=== PATIENT | female | born 1950 | race Caucasian/White ===

== ENCOUNTER → 2018-03-15 | Outpatient (CLI) | payer MEDICARE, BC ==
[~2018-03-15] MED LIST: ALDACTONE25 MG PO; ALLEGRA ALLERG180 MG PO; ALLEGRA ALLERGY60 MG PO; ASPIR 8181 MG PO; B-12250 MCG PO; CARVEDILOL3.125 MG PO; CARVEDILOL6.25 MG PO; COZAAR 50 MG TA50 M2 PO; COZAAR100 MG PO; DOXYCYCLINE HYC20 MG PO; EVISTA PO; FOLIC ACID 40400 MC1 PO; GLUCOSAMINE &1 EAC1 PO; HYDRALAZINE 2525 MG PO; LEVAQUIN 500 M500 M2 PO; LEVOTHYROXIN0.112 M1 PO; MAGNESIUM250 M1 PO; MAGNESIUM500 MG PO; METOPROLOL TART25 MG PO; MOBIC15 MG PO; NITROGLYCERIN0.4 MG SUBLING; OSTEO BI-FLEX1 EAC2 PO; PROAIR HFA8.5 GM NASAL; PROAIR HFA8.5 GM PO; PROTONIX40 M1 PO; RANITIDINE 150150 M1 PO; SAXENDA3 MG/0.5 M SUBQ; SYNTHROID100 MCG PO; VITAMIN B-121000 MCG PO; VITAMIN B-12500 MCG PO; VITAMIN D1000 UNI1 PO; VITAMIN D31 ML PO; VITAMIN D31000 UNI2 PO; VITAMINC500 PO
--- NOTE | 2018-03-15 11:18 | 2DMMODE ---
[place] [address] 2 D/M-MODE ECHOCARDIOGRAM Name: CHANCE LEVIN Room: [facility]#: [id number] Admission: 03/15/18 Attend Phys: Jordyn Sanchez Discharge: Date of : 48 Date of Service: 03/15/18 1118 Report #: [id number] THIS REPORT FOR: //name// APPROVED REPORT Study performed: 03/15/2018 09:21:19 EXAM: Comprehensive 2D, Doppler, and color-flow Echocardiogram Patient Location: Out-Patient Status: routine BSA: 2.07 HR: 65 bpm BP: 130/70 mmHg Other Information Study Quality: Good Indications Cardiomyopathy 2D Dimensions LVEF(%): 58.64 (>50%) IVSd: 12.40 (7-11mm) LVOT Diam: 20.94 (18-24mm) LVDd: 46.47 mm PWd: 9.61 (7-11mm) Ascending Ao: 28.70 (22-36mm) LVDs: 32.08 (25-40mm) Aortic Root: 21.99 mm Lee's LVEF: 58.64 % Volumes Left Atrial Volume (Systole) LA ESV Index: 22.70 mL/m2 Aortic Valve AoV Peak Kike.: 1.89 m/s AO Peak Gr.: 14.36 mmHg LVOT Max P.47 mmHg AO Mean Gr.: 8.09 mmHg LVOT Mean P.89 mmHg LVOT Max V: 0.93 m/s AO V2 VTI: 43.52 cm LVOT Mean V: 0.64 m/s SHAUN (VTI): 1.86 cm2 LVOT V1 VTI: 23.50 cm Mitral Valve E/A Ratio: 1.02 MV Decel. Time: 217.55 [place] [address] 2 D/M-MODE ECHOCARDIOGRAM Name: CHANCE LEVIN Room: [facility]#: [id number] Admission: 03/15/18 Attend Phys: Jordyn Sanchez Discharge: Date of : 48 Date of Service: 03/15/18 1118 Report #: [id number] MV E Max Kike.: 0.90 m/s MV PHT: 63.09 ms MVA (PHT): 3.49 cm2 TDI E/Lateral E': 8.18 E/Medial E': 8.18 Medial E' Kike.: 0.11 m/s Lateral E' Kike.: 0.11 m/s Pulmonary Valve PV Peak Kike.: 1.21 m/s PV Peak Gr.: 5.83 mmHg Left Ventricle The left ventricle is normal size. There is normal LV segmental wall motion. There is normal left ventricular wall thickness. Left ventricular systolic function is normal. The left ventricular ejection fraction is within the normal range. LVEF is 50-55%. Mild diastolic dysfunction is present (impaired relaxation pattern). Right Ventricle The right ventricle is normal size. The right ventricular systolic function is normal. Atria Left atrium is borderline dilated. The atrial septum is aneurysmal.No color flow evidence of shunting. The right atrium size is normal. Aortic Valve The aortic valve is normal in structure. No aortic regurgitation is present. There is no aortic valvular stenosis. Mitral Valve The mitral valve is normal in structure. Mild mitral regurgitation. No evidence of mitral valve stenosis. Tricuspid Valve The tricuspid valve is normal in structure. There is no tricuspid valve regurgitation noted. Pulmonic Valve The pulmonary valve is normal in structure. There is no pulmonic valvular regurgitation[place] [address] 2 D/M-MODE ECHOCARDIOGRAM Name: CHANCE LEVIN Room: [facility]#: [id number] Admission: 03/15/18 Attend Phys: Jordyn Sanchez Discharge: Date of : 48 Date of Service: 03/15/18 1118 Report #: [id number] The aortic root is normal in size. IVC is normal in size and collapses with >50% inspiration Pericardium There is no pericardial effusion. <Conclusion> LVEF is 50-55%. There is normal LV segmental wall motion. The atrial septum is aneurysmal. There is no aortic valvular stenosis. No aortic regurgitation is present. Mild mitral regurgitation. Mild diastolic dysfunction is present (impaired relaxation pattern). Left atrium is borderline dilated. <ELECTRONICALLY SIGNED> By: Simon Mendiola MD, FACC 03/15/18 1118 1118 1118 Simon Mendiola MD, FACC /INF
== END ==
LOC: M.CRD 09:00
DX: I42.0 Dilated cardiomyopathy (principal); I34.0 Nonrheumatic mitral (valve) insufficiency; M85.89 Other specified disorders of bone density and structure, multiple sites; Z78.0 Asymptomatic menopausal state

== ENCOUNTER → 2019-08-07 | Outpatient (CLI) | payer MEDICARE, BC | LOC: M.RAD 14:43 | DX: Z12.31 Encounter for screening mammogram for malignant neoplasm of breast (principal) ==

== ENCOUNTER → 2019-08-10 | Outpatient (CLI) | payer MEDICARE, BC | LOC: M.ULTRA 09:30 | DX: N60.02 Solitary cyst of left breast (principal) ==

== ENCOUNTER → 2020-06-04 | Outpatient (CLI) | payer MEDICARE, BC ==
--- NOTE | 2020-06-04 14:09 | 2DMMODE ---
[place] [address] 2 D/M-MODE ECHOCARDIOGRAM Name: DEMARCOPRITESHCHANCE Jordyn Room: [facility]#: [id number] Admission: 06/04/20 Attend Phys: Malena Galvan, Discharge: Date of : 48 Date of Service: 06/04/20 1409 Report #: [id number] THIS REPORT FOR: cc: Justen Jain MD, Matthew W. MD Liston, Michael J. MD [facility] ~ APPROVED REPORT Study performed: 06/04/2020 11:02:58 EXAM: Comprehensive 2D, Doppler, and color-flow Echocardiogram Patient Location: Out-Patient BSA: 1.95 HR: 72 bpm BP: 120/70 mmHg Other Information Study Quality: Good Indications CAD Cardiomyopathy 2D Dimensions IVSd: 11.15 (7-11mm) LVOT Diam: 20.05 (18-24mm) LVDd: 49.29 mm PWd: 9.38 (7-11mm) Ascending Ao: 26.61 (22-36mm) LVDs: 29.13 (25-40mm) Aortic Root: 28.42 mm Volumes Left Atrial Volume (Systole) LA ESV Index: 17.60 mL/m2 Aortic Valve AoV Peak Kike.: 1.59 m/s AO Peak Gr.: 10.10 mmHg LVOT Max P.45 mmHg AO Mean Gr.: 6.11 mmHg LVOT Mean P.68 mmHg LVOT Max V: 0.93 m/s AO V2 VTI: 37.50 cm LVOT Mean V: 0.60 m/s SHAUN (VTI): 1.72 cm2 LVOT V1 VTI: 20.39 [place] [address] 2 D/M-MODE ECHOCARDIOGRAM Name: CHANCE LEVIN Room: [facility]#: [id number] Admission: 06/04/20 Attend Phys: Malena Galvan, Discharge: Date of : 48 Date of Service: 06/04/20 1409 Report #: [id number] E/A Ratio: 0.78 MV Decel. Time: 225.84 ms MV E Max Kike.: 0.69 m/s MV PHT: 65.49 ms MVA (PHT): 3.36 cm2 TDI E/Lateral E': 5.75 E/Medial E': 9.86 Medial E' Kike.: 0.07 m/s Lateral E' Kike.: 0.12 m/s Pulmonary Valve PV Peak Kike.: 1.11 m/s PV Peak Gr.: 4.95 mmHg Left Ventricle The left ventricle is normal size. There is normal LV segmental wall motion. There is normal left ventricular wall thickness. Left ventricular systolic function appears to be at the lower limits of normal. LVEF is 50-55%. Grade I - abnormal relaxation pattern. Right Ventricle The right ventricle is normal size. The right ventricular systolic function is normal. Atria The left atrium size is normal. The right atrium size is normal. Aortic Valve The aortic valve is normal in structure. No aortic regurgitation is present. There is no aortic valvular stenosis. Mitral Valve The mitral valve is normal in structure. Trace mitral regurgitation. No evidence of mitral valve stenosis. Tricuspid Valve The tricuspid valve is normal in structure. There is no tricuspid valve regurgitation noted. Pulmonic Valve The pulmonary valve is normal in structure. There is no pulmonic valvular regurgitation. Great Vessels The aortic root is normal in size. IVC [place] [address] 2 D/M-MODE ECHOCARDIOGRAM Name: CHANCE LEVIN Room: [facility]#: [id number] Admission: 06/04/20 Attend Phys: Malena Galvan, Discharge: Date of : 48 Date of Service: 06/04/20 1409 Report #: [id number] collapses >50% with inspiration. Pericardium There is no pericardial effusion. <Conclusion> The left ventricle is normal size. There is normal left ventricular wall thickness. Left ventricular systolic function appears to be at the lower limits of normal. LVEF is 50-55%. Grade I - abnormal relaxation pattern. Trace mitral regurgitation. IVC is normal in size and collapses >50% with inspiration. <ELECTRONICALLY SIGNED> By: Johnny Hamlin MD, FACC 06/04/20 1409 08 08 Johnny Hamlin MD, FACC /INF
== END ==
LOC: M.CRD 11:00
PROVIDERS: ATTEND Internal Medicine
DX: I47.1 Supraventricular tachycardia (principal); I10 Essential (primary) hypertension; I42.0 Dilated cardiomyopathy; I25.10 Atherosclerotic heart disease of native coronary artery without angina pectoris

== ENCOUNTER → 2021-04-17 | Outpatient (CLI) | payer MEDICARE, BC | LOC: M.ULTRA 13:30 → M.RAD 13:43 → M.ULTRA 13:43 | PROVIDERS: ATTEND Family Medicine | DX: Z12.31 Encounter for screening mammogram for malignant neoplasm of breast (principal); E05.90 Thyrotoxicosis, unspecified without thyrotoxic crisis or storm ==